=== PATIENT | female | born 2005 | race Hispanic/Latino ===

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

== ENCOUNTER 2025-05-13 14:20 | Emergency (ER) | payer MEDICAID, SELFPAY ==
[2025-05-13 14:54] LABS: Glucose, Urine (Dipstick) Normal (Negative); Leukocyte 500 (Negative); Protein, Urine (Dipstick) 30 mg/dl (Neg-Trace); Specific Gravity, Urine 1.020 (1.005-1.030)
[2025-05-13 15:07] LABS: Bacteria/HPF 4+ HPF (None Seen); CAUTI Indications for Culture Dysuria,urgency,freq; Mucous/LPF 2+ LPF (<2+); RBC/HPF 0-3 HPF (0-3); WBC/HPF 21-50 HPF (0-3)
[2025-05-13 15:08] LABS: Urine Culture Reflex Yes Yes
[2025-05-13] MEDS ORDERED: metroNIDAZOLE 500 MG TAB ONE (16:02)
[2025-05-15 04:48] LABS: Chlamydia by PCR, Vaginal Swab Not Detected (NotDetected); GC by PCR, Vaginal Swab Not Detected (NotDetected)
== END 2025-05-13 16:07 | disposition home or self-care (01) ==
LOC: CSHERS 14:20
DX: O23.42 Unspecified infection of urinary tract in pregnancy, second trimester (principal); N39.0 Urinary tract infection, site not specified; O23.592 Infection of other part of genital tract in pregnancy, second trimester; B96.89 Other specified bacterial agents as the cause of diseases classified elsewhere; Z55.6 Problems related to health literacy; Z75.3 Unavailability and inaccessibility of health-care facilities; Z3A.16 16 weeks gestation of pregnancy
CPT/HCPCS: 81001; 87086; 87480; 87491; 87510; 87591; 87660; 99283

== ENCOUNTER 2025-08-07 00:54 | Day surgery (SDC) | payer MEDICAID ==
[2025-08-07] MEDS ORDERED: hydrALAZINE 20 MG/ML VIAL SLOW IVP PRN (02:05)
[2025-08-07 02:31] VITALS: BMI 36.0
[2025-08-07] MEDS: diphenhydrAMINE 25 MG CAP PO SCH (02:44)
[2025-08-07 02:52] LABS: ALT (SGPT) 189 U/L (Less than 34); AST (SGOT) 125 U/L (11-34); Albumin 2.3 g/dL (3.1-4.5); Alkaline Phosphatase 144 U/L (40-100); Anion Gap 14 mmol/L (10-20); BUN (Urea Nitrogen) 7 mg/dL (7.0-18.7); Bilirubin, Total 0.8 mg/dL (0.3-1.2); Calc. Creatinine Clearance 234 mL/min (70-130); Calcium 9.2 mg/dL (7.8-10.44); Carbon Dioxide 21 mmol/L (22-29); Chloride 105 mmol/L (98-107); Globulin 4.2 g/dL (2.4-3.5); Glucose 102 mg/dL (70-105); Potassium 3.4 mmol/L (3.5-5.1); Sodium 137 mmol/L (136-145)
== END 2025-08-07 02:55 | disposition home or self-care (01) ==
LOC: CSHLD/OP 00:54
PROVIDERS: ATTEND Family Medicine
DX: O26.893 Other specified pregnancy related conditions, third trimester (principal); L29.9 Pruritus, unspecified; O99.891 Other specified diseases and conditions complicating pregnancy; R20.8 Other disturbances of skin sensation; O30.043 Twin pregnancy, dichorionic/diamniotic, third trimester; Z3A.28 28 weeks gestation of pregnancy
CPT/HCPCS: 36415; 80053; 82239

== ENCOUNTER 2025-08-09 13:44 | Day surgery (SDC) | payer MEDICAID ==
[2025-08-09] MEDS ORDERED: hydrALAZINE 20 MG/ML VIAL SLOW IVP PRN (14:12)
[2025-08-09 14:21] VITALS: BMI 36.0
[2025-08-09] MEDS: Ursodiol 300 MG CAP PO SCH (15:08)
== END 2025-08-09 16:10 | disposition short-term general hospital (02) ==
LOC: CSHLD/OP 13:44 → CSHSDC 13:44 → CSHERS 13:44 → CSHLD/OP 16:10
PROVIDERS: ATTEND Family Medicine
DX: O26.893 Other specified pregnancy related conditions, third trimester (principal); O30.043 Twin pregnancy, dichorionic/diamniotic, third trimester; O98.813 Other maternal infectious and parasitic diseases complicating pregnancy, third trimester; B95.1 Streptococcus, group B, as the cause of diseases classified elsewhere; O26.643 Intrahepatic cholestasis of pregnancy, third trimester; Z3A.28 28 weeks gestation of pregnancy; Z67.40 Type O blood, Rh positive; Z79.899 Other long term (current) drug therapy
CPT/HCPCS: 96360; 99285; J0702

== ENCOUNTER 2025-08-17 16:57 | Observation (INO) | payer MEDICAID, SELFPAY ==
[2025-08-17 17:17] VITALS: BMI 36.3
[2025-08-17] MEDS ORDERED: Ondansetron PF 4 MG/2 ML Vial IVP PRN (19:02)
[2025-08-17] MEDS ORDERED: hydrALAZINE 20 MG/ML VIAL SLOW IVP PRN (19:02)
[2025-08-17] MEDS ORDERED: Acetaminophen 500 MG TAB PO PRN (19:03)
[2025-08-17 20:29] LABS: #Basophils 0.03 10x3/uL (0.0-0.2); #Eosinophils 0.16 10x3/uL (0.0-0.5); #Monocytes 0.71 10x3/uL (0.0-1.1); #Neutrophils 6.22 10x3/uL (1.5-8.4); %Basophils 0.3 % (0.0-2.0); %Eosinophils 1.7 % (0.0-6.0); %Lymphocytes 23.7 % (18.0-47.0); %Monocytes 7.5 % (0.0-10.0); %Neutrophils 65.8 % (40.0-75.0); Hematocrit 32.4 % (34.9-44.5); Hemoglobin 11.0 g/dL (12.0-15.5); Mean Corpuscular Hemoglobin 29.8 pg (27.0-33.0); Mean Corpuscular Volume 87.8 fL (81.6-98.3); Platelet Count 328 10x3/uL (150-450); Red Blood Cell (RBC) Count 3.69 10x6/uL (3.90-5.03); White Blood Cell (WBC) Count 9.45 10x3/uL (3.5-10.5)
[2025-08-17 20:38] LABS: ALT (SGPT) 129 U/L (Less than 34); AST (SGOT) 81 U/L (11-34); Albumin 2.3 g/dL (3.1-4.5); Alkaline Phosphatase 168 U/L (40-100); Anion Gap 14 mmol/L (10-20); BUN (Urea Nitrogen) 8 mg/dL (7.0-18.7); Bilirubin, Total 0.5 mg/dL (0.3-1.2); Calc. Creatinine Clearance 237 mL/min (70-130); Calcium 8.5 mg/dL (7.8-10.44); Carbon Dioxide 23 mmol/L (22-29); Chloride 105 mmol/L (98-107); Globulin 3.7 g/dL (2.4-3.5); Glucose 95 mg/dL (70-105); Potassium 3.9 mmol/L (3.5-5.1); Sodium 138 mmol/L (136-145)
[2025-08-17 22:01] LABS: INR-International Normal Ratio 0.9; PTT 22.4 sec (22.0-33.0); Prothrombin Time 9.8 sec (9.5-12.1)
[2025-08-17] MEDS: Ursodiol 300 MG CAP PO SCH (23:10)
[2025-08-18 08:29] VITALS: BP 105/53; TEMP 97.5
[2025-08-18] MEDS: Ursodiol 300 MG CAP PO SCH (09:27)
[2025-08-18] MEDS: Aspirin 81 mg Enteric Coated Tablet PO SCH (09:27)
== END 2025-08-18 12:35 | disposition home or self-care (01) ==
LOC: CSHLD/OP 16:57 → CSHLD 19:31 → INTOOBSV 19:31 → CSHANTE 21:30
PROVIDERS: ADMIT Family Medicine; ATTEND Family Medicine
DX: O26.643 Intrahepatic cholestasis of pregnancy, third trimester (principal); K76.89 Other specified diseases of liver; O30.043 Twin pregnancy, dichorionic/diamniotic, third trimester; O98.813 Other maternal infectious and parasitic diseases complicating pregnancy, third trimester; B95.1 Streptococcus, group B, as the cause of diseases classified elsewhere; O36.8130 Decreased fetal movements, third trimester, not applicable or unspecified; O26.893 Other specified pregnancy related conditions, third trimester; O98.513 Other viral diseases complicating pregnancy, third trimester; Z3A.30 30 weeks gestation of pregnancy; Z67.20 Type B blood, Rh positive; Z79.899 Other long term (current) drug therapy
CPT/HCPCS: 36415; 76815; 76819; 80053; 82239; 85025; 85610; 85730; G0378

== ENCOUNTER 2025-09-04 17:37 | Day surgery (SDC) | payer MEDICAID ==
[2025-09-04] MEDS ORDERED: Ondansetron PF 4 MG/2 ML Vial IVP PRN (18:15)
[2025-09-04 18:56] VITALS: BMI 35.2
[2025-09-04 20:34] LABS: #Basophils 0.03 10x3/uL (0.0-0.2); #Eosinophils 0.10 10x3/uL (0.0-0.5); #Monocytes 0.42 10x3/uL (0.0-1.1); #Neutrophils 4.85 10x3/uL (1.5-8.4); %Basophils 0.4 % (0.0-2.0); %Eosinophils 1.4 % (0.0-6.0); %Lymphocytes 24.3 % (18.0-47.0); %Monocytes 5.8 % (0.0-10.0); %Neutrophils 67.4 % (40.0-75.0); Hematocrit 34.1 % (34.9-44.5); Hemoglobin 11.6 g/dL (12.0-15.5); Mean Corpuscular Hemoglobin 29.4 pg (27.0-33.0); Mean Corpuscular Volume 86.5 fL (81.6-98.3); Platelet Count 236 10x3/uL (150-450); Red Blood Cell (RBC) Count 3.94 10x6/uL (3.90-5.03); White Blood Cell (WBC) Count 7.20 10x3/uL (3.5-10.5)
[2025-09-04 20:56] LABS: ALT (SGPT) 103 U/L (Less than 34); AST (SGOT) 76 U/L (11-34); Albumin 2.2 g/dL (3.1-4.5); Alkaline Phosphatase 171 U/L (40-100); Anion Gap 14 mmol/L (10-20); BUN (Urea Nitrogen) 7 mg/dL (7.0-18.7); Bilirubin, Total 0.6 mg/dL (0.3-1.2); Calc. Creatinine Clearance 194 mL/min (70-130); Calcium 8.5 mg/dL (7.8-10.44); Carbon Dioxide 20 mmol/L (22-29); Chloride 107 mmol/L (98-107); Globulin 4.1 g/dL (2.4-3.5); Glucose 100 mg/dL (70-105); Potassium 3.7 mmol/L (3.5-5.1); Sodium 137 mmol/L (136-145)
== END 2025-09-04 23:05 | disposition home or self-care (01) ==
LOC: CSHLD/OP 17:37
PROVIDERS: ATTEND Emergency Medicine
DX: O26.643 Intrahepatic cholestasis of pregnancy, third trimester (principal); O30.043 Twin pregnancy, dichorionic/diamniotic, third trimester; O99.213 Obesity complicating pregnancy, third trimester; O98.813 Other maternal infectious and parasitic diseases complicating pregnancy, third trimester; B95.1 Streptococcus, group B, as the cause of diseases classified elsewhere; O98.513 Other viral diseases complicating pregnancy, third trimester; Z3A.32 32 weeks gestation of pregnancy; Z67.40 Type O blood, Rh positive; Z79.899 Other long term (current) drug therapy
CPT/HCPCS: 36415; 76819; 80053; 82239; 85025; 99284